=== PATIENT | female | born 1950 | race Caucasian/White ===

== ENCOUNTER → 2017-07-28 | Day surgery (SDC) | payer MEDICARE ==
[2017-07-27 15:06] LABS: BASOPHILS # (AUTO) 0.1 (0.0-0.1); BASOPHILS % 0.5 % (0.0-1.0); EOSINOPHILS # (AUTO) 0.2 (0.0-0.4); HEMATOCRIT 40.2 % (34.2-44.1); LYMPHOCYTES # (AUTO) 3.1 (1.0-3.2); MEAN CORPUSCULAR HGB CONC 34.8 g/dL (31-35); MEAN CORPUSCULAR VOLUME 86.1 fL (81-99); MONOCYTES # (AUTO) 1.1 (0.2-0.8); NEUTROPHILS # (AUTO) 5.6 (2.1-6.9); NEUTROPHILS % 55.1 % (38.7-80.0); PLATELET COUNT 347 x10e3/uL (140-360); RED BLOOD COUNT 4.67 x10e6/uL (3.6-5.1); RED CELL DISTRIBUTION WIDTH 12.7 % (11.7-14.4)
[~2017-07-28] MED LIST: ADVIL200 M1 PO; CALCIUM PO; CYCLOBENZAPRINE10 MG PO; DIGOXIN PO; FENTANYL CITRATE/PF 100MCG/2 ML INJ ONE; FLEXERIL PO; GABAPENTIN300 MG PO; IOPAMIDOL 200 MG/ML 20 ML VIAL IT ONE; LIDOCAINE HCL 1% 30ML-PF VIAL ONE; LIDOCAINE HCL 2% LOCAL INJ 5 ML SDV VIAL INJ ONE; LOSARTAN POTASS50 MG PO; METOPROLOL SUCC50 MG PO; MIDAZOLAM HCL 2 MG/2 ML VIAL ONE; NORCO 10-325 T1 EACH PO; PROBIOTIC PO; PROPOFOL IV EMULSION 10 MG/ML 20 ML VIAL ONE; QUINAPRIL PO; TRIAMCINOLONE ACET 40 MG/ML VIAL ONE; VITAMIN D PO
== END | disposition home or self-care (01) ==
LOC: OR 07:38
PROVIDERS: ATTEND Physical Medicine & Rehabilitation Pain Medicine
DX: M46.1 Sacroiliitis, not elsewhere classified (principal); M54.16 Radiculopathy, lumbar region; R93.7 Abnormal findings on diagnostic imaging of other parts of musculoskeletal system; I10 Essential (primary) hypertension; Z01.810 Encounter for preprocedural cardiovascular examination; Z01.812 Encounter for preprocedural laboratory examination; Z87.01 Personal history of pneumonia (recurrent)
CPT/HCPCS: 36415; 76000; 85025; 93005; G0260; J2001 ×2; J2250; J3301; Q9966

== ENCOUNTER → 2017-08-11 | Day surgery (SDC) | payer MEDICARE ==
[~2017-08-11] MED LIST changes: +BUPIVACAINE 0.25% 30ML SDV INJ ONE; +DEXAMETHASONE SOD PHOS 10 MG/1 ML VIAL ONE; -LIDOCAINE HCL 2% LOCAL INJ 5 ML SDV VIAL INJ ONE; -PROPOFOL IV EMULSION 10 MG/ML 20 ML VIAL ONE; +PROPOFOL IV EMULSION 10 MG/ML 50 ML VIAL ONE; -TRIAMCINOLONE ACET 40 MG/ML VIAL ONE
== END | disposition home or self-care (01) ==
LOC: OR 05:17
PROVIDERS: ATTEND Physical Medicine & Rehabilitation Pain Medicine
DX: M54.16 Radiculopathy, lumbar region (principal); M46.1 Sacroiliitis, not elsewhere classified; R93.7 Abnormal findings on diagnostic imaging of other parts of musculoskeletal system; I10 Essential (primary) hypertension
CPT/HCPCS: 64483; 64484; J1100; J2001; J2250; Q9966; 77003

== ENCOUNTER → 2017-08-17 | Outpatient (RCR) | payer MEDICARE ==
[~2017-08-17] MED LIST changes: -BUPIVACAINE 0.25% 30ML SDV INJ ONE; -DEXAMETHASONE SOD PHOS 10 MG/1 ML VIAL ONE; -FENTANYL CITRATE/PF 100MCG/2 ML INJ ONE; -IOPAMIDOL 200 MG/ML 20 ML VIAL IT ONE; -LIDOCAINE HCL 1% 30ML-PF VIAL ONE; -MIDAZOLAM HCL 2 MG/2 ML VIAL ONE; -PROPOFOL IV EMULSION 10 MG/ML 50 ML VIAL ONE
== END ==
LOC: PT 08-04 15:51
PROVIDERS: ATTEND Physical Medicine & Rehabilitation Pain Medicine
DX: M54.16 Radiculopathy, lumbar region (principal); M53.86 Other specified dorsopathies, lumbar region; M62.81 Muscle weakness (generalized)
CPT/HCPCS: 97010; 97110 ×5; 97162; G8978; G8979

== ENCOUNTER → 2017-09-01 | Day surgery (SDC) | payer MEDICARE ==
[~2017-09-01] MED LIST changes: +DEXAMETHASONE SOD PHOS 10 MG/1 ML VIAL ONE; +FENTANYL CITRATE/PF 100MCG/2 ML INJ ONE; +IOPAMIDOL 200 MG/ML 20 ML VIAL IT ONE; +LIDOCAINE HCL 1% 30ML-PF VIAL ONE; +LIDOCAINE HCL 2% LOCAL INJ 5 ML SDV VIAL INJ ONE; +MIDAZOLAM HCL 2 MG/2 ML VIAL ONE; +PROPOFOL IV EMULSION 10 MG/ML 20 ML VIAL ONE
--- OUTSIDE RECORDS SUMMARY | 2017-09-01 05:15 | XMS REPORT | Continuity of Care Document ---
Author Author [facility] Organization [facility] Address [address] [place] [address] Phone Unavailable Care Team Providers Care Color Coater Name Role Phone JUSTICE FITZPATRICK MD PCP Insurance Providers Guarantor Annia Augustine Lynch Address [address] [place] [address] Email [email or web address] Payer [employer] Medicare Policy Number [id number] Subscriber's Name Annia Augustine Relationship 18 Self / Same As Patient Group Number [id number] Group Name [facility] OF Effective Date 17 Advance Directives Directive Response Recorded Date/Time Does the patient have an advance directive? Yes 07/16/14 11:29am If yes, is advance directive on file with [facility]? No 06/25/13 12:34pm If not on file with [facility] will patient provide a copy? No 08/11/17 5:14am Do you have a Directive to Physician? Yes 08/11/17 5:14am Do you have a Medical Power of Customs And Immigration Officer? Yes 08/11/17 5:14am Do you have an out of hospital Do Not Resuscitate Order? No 08/11/17 5:14am Do you have any special needs we should be aware of? No 08/11/17 5:14am Do you have a support person here with you today? Yes 08/11/17 5:14am Did patient receive Notice of Privacy Practices? Yes 08/11/17 5:14am Did patient receive patient rights and responsibilities? Yes 08/11/17 5:14am Problems No problem information available. Medications Current Home Medications Medication Dose Units Route Directions Days Qty Instructions Start Date Gabapentin 300 Mg Capsule 300 Mg Oral Three Times A Day 60 Cap Hydrocodone Bit/Acetaminophen ([place] 10-325 Tablet) 1 Each Tablet Mg Oral Every 6 Hours As Nee Ibuprofen (Advil) 200 Mg Capsule 200 Mg Oral As Needed as needed for Pain Losartan Potassium 50 Mg Tablet 50 Mg Oral Daily Metoprolol Succinate 50 Mg Tab.er.24h 50 Mg Oral Daily Past Home Medications Medication Directions Ordered Status Calcium , Oral Daily Discontinued Cyclobenzaprine Hcl 10 Mg Tablet, 10 Mg Oral Three Times A Day Discontinued Digoxin , Oral Daily Discontinued Flexeril , Oral As Needed Discontinued Probiotic , Oral Daily Discontinued Quinapril , Oral Daily Discontinued Vitamin D , Oral Daily Discontinued Social History No social history information available. Hospital Discharge Instructions Current inpatient/outpatient. Discharge instructions are currently unavailable. Plan of Care Current inpatient/outpatient. The plan of care is currently unavailable. Functional Status No functional status information available. Allergies, Adverse Reactions, Alerts Allergen Type Severity Reaction Status Last Updated Codeine Allergy Intermediate NAUSEA Active 07/28/17 Immunizations No immunization information available. Vital Signs No vital sign information available. Results Laboratory Results Test Name Result Units Flags Reference Collection Date/Time Result Date/ Time Comments White Blood Count 10.09 x10e3/uL 4.8-10.8 07/27/2017 3:00pm 07/27/2017 3:07pm Red Blood Count 4.67 x10e6/uL 3.6-5.1 07/27/2017 3:00pm 07/27/2017 3: 07pm Hemoglobin 14.0 g/dL 12.0-16.0 07/27/2017 3:00pm 07/27/2017 3:07pm Hematocrit 40.2 % 34.2-44.1 07/27/2017 3:00pm 07/27/2017 3:07pm Mean Corpuscular Volume 86.1 fL 81-99 07/27/2017 3:00pm 07/27/2017 3: 07pm Mean Corpuscular Hemoglobin 30.0 pg 28-32 07/27/2017 3:00pm 07/27/2017 3:07pm Mean Corpuscular Hemoglobin Concent 34.8 g/dL 31-35 07/27/2017 3:00pm 07/27/2017 3:07pm Red Cell Distribution Width 12.7 % 11.7-14.4 07/27/2017 3:00pm 2017 3:07pm Platelet Count 347 x10e3/uL 140-360 07/27/2017 3:00pm 07/27/2017 3: 07pm Neutrophils (%) (Auto) 55.1 % 38.7-80.0 07/27/2017 3:00pm 07/27/2017 3: 07pm Lymphocytes (%) (Auto) 31.0 % 18.0-39.1 07/27/2017 3:00pm 07/27/2017 3: 07pm Monocytes (%) (Auto) 11.0 % 4.4-11.3 07/27/2017 3:00pm 07/27/2017 3: 07pm Eosinophils (%) (Auto) 2.0 % 0.0-6.0 07/27/2017 3:00pm 07/27/2017 3: 07pm Basophils (%) (Auto) 0.5 % 0.0-1.0 07/27/2017 3:00pm 07/27/2017 3:07pm IM GRANULOCYTES % 0.4 % 0.0-1.0 07/27/2017 3:00pm 07/27/2017 3:07pm Neutrophils # (Auto) 5.6 2.1-6.9 07/27/2017 3:00pm 07/27/2017 3:07pm Lymphocytes # (Auto) 3.1 1.0-3.2 07/27/2017 3:00pm 07/27/2017 3:07pm Monocytes # (Auto) 1.1 H 0.2-0.8 07/27/2017 3:00pm 07/27/2017 3:07pm Eosinophils # (Auto) 0.2 0.0-0.4 07/27/2017 3:00pm 07/27/2017 3:07pm Basophils # (Auto) 0.1 0.0-0.1 07/27/2017 3:00pm 07/27/2017 3:07pm Absolute Immature Granulocyte (auto 0.04 x10e3/uL 0-0.1 07/27/2017 3: 00pm 07/27/2017 3:07pm Procedures Procedure Status Date Provider(s) COLONOSCOPY W/LESION REMOVAL Completed 03/28/17 JAVAN OROPEZA MD Inj for sacroiliac jt anesth Completed 07/28/17 RUBIO MEDINA MD Encounters Encounter Location Arrival/Admit Date Discharge/Depart Date Attending Provider Discharged [facility] 08/17/17 10:54am 11:59pm RUBIO MEDINA MD Registered Surgical Day Care [facility] 08/11/17 5:17am RUBIO MEDINA MD Registered Surgical Day [facility] 07/28/17 7:38am RUBIO MEDINA MD Registered Surgical Day [facility] 03/28/17 5:42am JAVAN OROPEZA MD
== END | disposition home or self-care (01) ==
LOC: OR 05:13
PROVIDERS: ATTEND Physical Medicine & Rehabilitation Pain Medicine
DX: M54.16 Radiculopathy, lumbar region (principal); M54.17 Radiculopathy, lumbosacral region; M46.1 Sacroiliitis, not elsewhere classified; M62.838 Other muscle spasm; R93.7 Abnormal findings on diagnostic imaging of other parts of musculoskeletal system; I25.2 Old myocardial infarction
CPT/HCPCS: 64483; 64484 ×2; J1100; J2001 ×2; J2250; Q9966; 77003

== ENCOUNTER 2017-09-02 11:00 | Outpatient (RCR) | payer MEDICARE ==
[~2017-09-02 11:00] MED LIST changes: -DEXAMETHASONE SOD PHOS 10 MG/1 ML VIAL ONE; -FENTANYL CITRATE/PF 100MCG/2 ML INJ ONE; -IOPAMIDOL 200 MG/ML 20 ML VIAL IT ONE; -LIDOCAINE HCL 1% 30ML-PF VIAL ONE; -LIDOCAINE HCL 2% LOCAL INJ 5 ML SDV VIAL INJ ONE; -MIDAZOLAM HCL 2 MG/2 ML VIAL ONE; -PROPOFOL IV EMULSION 10 MG/ML 20 ML VIAL ONE
== END 2017-09-14 ==
LOC: PT 11:00
PROVIDERS: ATTEND Physical Medicine & Rehabilitation Pain Medicine
DX: M54.16 Radiculopathy, lumbar region (principal)
CPT/HCPCS: 97010; 97110 ×7; 97139; 97140 ×4; G8978; G8979

== ENCOUNTER 2017-09-09 13:44 | Emergency (ER) | payer MEDICARE ==
[~2017-09-09] VITALS: Ht 165.1 cm; Wt 87.5 kg
[2017-09-09] MEDS ORDERED: KETOROLAC TROMETHAMINE 30 MG/ML VIAL IV STA (15:34)
[2017-09-09] MEDS ORDERED: SODIUM CHLORIDE 0.9% 1000ML 1,000 ML IV ONE (15:45)
[2017-09-09] MEDS ORDERED: FENTANYL CITRATE/PF 100MCG/2 ML INJ IV ONE (15:45)
[2017-09-09] MEDS ORDERED: DIATRIZOATE MEGL/DIATRIZOA SOD 30 ML BTL PO ONE (15:46)
[2017-09-09] MEDS ORDERED: FENTANYL CITRATE/PF 100MCG/2 ML INJ IV NR (16:00)
[2017-09-09] MEDS ORDERED: KETOROLAC TROMETHAMINE 30 MG/ML VIAL IV NR (16:00)
[2017-09-09 16:09] LABS: BASOPHILS % 0.3 % (0.0-1.0); EOSINOPHILS # (AUTO) 0.1 (0.0-0.4); EOSINOPHILS % 0.6 % (0.0-6.0); HEMATOCRIT 38.7 % (34.2-44.1); HEMOGLOBIN 13.6 g/dL (12.0-16.0); LYMPHOCYTES # (AUTO) 2.2 (1.0-3.2); MEAN CORPUSCULAR HEMOGLOBIN 30.2 pg (28-32); MEAN CORPUSCULAR HGB CONC 35.1 g/dL (31-35); MEAN CORPUSCULAR VOLUME 85.8 fL (81-99); MONOCYTES # (AUTO) 0.8 (0.2-0.8); NEUTROPHILS % 65.8 % (38.7-80.0); PLATELET COUNT 368 x10e3/uL (140-360); RED BLOOD COUNT 4.51 x10e6/uL (3.6-5.1); RED CELL DISTRIBUTION WIDTH 12.9 % (11.7-14.4)
[2017-09-09 16:39] LABS: ALANINE AMINOTRANSFERASE 25 IU/L (0-55); ALBUMIN 3.7 g/dL (3.5-5.0); ALKALINE PHOSPHATASE 97 IU/L (40-150); ANION GAP 12.9 mmol/L (8-16); BLOOD UREA NITROGEN 12 mg/dL (7-26); BUN/CREATININE RATIO 16 (6-25); CALCIUM 10.3 mg/dL (8.4-10.2); CARBON DIOXIDE 21 mmol/L (22-29); CHLORIDE 107 mmol/L (98-107); CREATININE, SERUM 0.73 mg/dL (0.57-1.11); EST GLOMERULAR FILTRATION RATE > 60 ML/MIN (60-); GLUCOSE 114 mg/dL (74-118); LIPASE 29 U/L (8-78); POTASSIUM 3.9 mmol/L (3.5-5.1); SODIUM 137 mmol/L (136-145)
[2017-09-09] MEDS ORDERED: IOPAMIDOL 370 MG/ML 200 ML INFUS..BTL INJ ONE (17:18)
--- NOTE | 2017-09-09 17:53 | Diagnostic Imaging Report ---
EXAM: CT Abdomen and Pelvis WITH contrast INDICATION: \S\LLQ pain, constipation, low grade Temp \[id number] \S\1700 COMPARISON: Renal ultrasound dated 08/23/2016 TECHNIQUE: Abdomen and pelvis were scanned utilizing a multidetector helical scanner from the lung base to the pubic symphysis after administration of IV contrast. Coronal and sagittal reformations were obtained. Routine protocol was performed. Scan was performed when during portal venous phase. IV CONTRAST: 100 mL of Isovue-370 ORAL CONTRAST: Gastroview COMPLICATIONS: None RADIATION DOSE: Total DLP: 695.72 mGy*cm Estimated effective dose: (DLP x 0.015 x size factor) mSv CTDIvol has been reviewed. It is below the limits set by the Radiation Protocol Committee (RPC). FINDINGS: LINES and TUBES: None. LOWER THORAX: Unremarkable. Partially imaged mitral valve calcification. HEPATOBILIARY: No focal hepatic lesions. No biliary ductal dilation. GALLBLADDER: Calcified gallstones in gallbladder neck. No wall thickening. SPLEEN: No splenomegaly. PANCREAS: No focal masses or ductal dilatation. ADRENALS: No adrenal nodules KIDNEYS/URETERS: Kidneys enhance symmetrically. No hydronephrosis. 2.7 cm exophytic right superior pole renal hypodensity with internal attenuation greater than simple fluid. This lesion has been stable and appears as a simple cyst on ultrasound dated 08/23/2016. Multiple left renal subcentimeter hypodensities are too small to characterize. No stones. GI TRACT: No abnormal distention, wall thickening, or evidence of bowel obstruction. Colonic diverticulosis with minimal left lower quadrant pericolonic fat stranding, best seen on coronal image 42, suspicious for mild uncomplicated diverticulitis. Appendix is normal. Small hiatal hernia. 3.5 x 3.5 cm diverticulum, extending from the posterior gastric fundus, with air-contrast level (series 2, image 12). PELVIC ORGANS/BLADDER: Unremarkable. Retroverted uterus. LYMPH NODES: No lymphadenopathy. VESSELS: Unremarkable. PERITONEUM / RETROPERITONEUM: No free air or fluid. BONES: Degenerative changes of the spine, especially at L4-L5. SOFT TISSUES: Unremarkable. IMPRESSION: 1. Colonic diverticulosis with questionable minimal left lower quadrant fat stranding, which could represent mild uncomplicated diverticulitis. 2. Cholelithiasis without evidence of cholecystitis. 3. Incidentally seen 3.5 cm gastric diverticulum. Signed by: Dr. Harrison Dominguez MD on 09/09/2017 5:49 PM
[2017-09-09] MEDS ORDERED: METRONIDAZOLE 500 MG TAB PO ONE (18:30)
[2017-09-09] MEDS ORDERED: CIPROFLOXACIN 500 MG TAB PO ONE (18:30)
== END 2017-09-09 19:02 | disposition home or self-care (01) ==
LOC: ER 13:44
DX: R10.32 Left lower quadrant pain (principal); R11.0 Nausea; K57.32 Diverticulitis of large intestine without perforation or abscess without bleeding
CPT/HCPCS: 36415; 74177; 80053; 83690; 85025; 99284; J1885; J7030; Q9967

== ENCOUNTER → 2017-10-06 | Day surgery (SDC) | payer MEDICARE ==
[~2017-10-06] MED LIST changes: +DEXAMETHASONE SOD PHOS 10 MG/1 ML VIAL ONE; +FENTANYL CITRATE/PF 100MCG/2 ML INJ ONE; +IOPAMIDOL 200 MG/ML 20 ML VIAL IT ONE; +LIDOCAINE HCL 1% 30ML-PF VIAL ONE; +MIDAZOLAM HCL 2 MG/2 ML VIAL ONE; +PROPOFOL IV EMULSION 10 MG/ML 20 ML VIAL ONE
--- OUTSIDE RECORDS SUMMARY | 2017-10-06 06:44 | XMS REPORT ---
Author Author [facility] Address Unknown Phone Unavailable Care Team Providers Care Discharge Specialist Name Role Phone JANET CARIAS Unavailable Unavailable Problems This patient has no known problems. Allergies, Adverse Reactions, Alerts This patient has no known allergies or adverse reactions. Medications This patient has no known medications. Results Test Description Test Time Test Comments Text Results Atomic Results Result Comments CT ABDOMEN/PELVIS W [place] [address] Patient Name: STARR OMALLEY MR #: [id number] : 1950 Age/Sex: 66/F Req #: [id number] [facility] Physician: Ordered by: JANET CARIAS MD Report #: [id number] Location: ER Room/Bed: Procedure: [id number] CT/CT ABDOMEN/PELVIS W Exam Date: 09/09/17 Exam Time: 1700 REPORT STATUS: Signed EXAM: CT Abdomen and Pelvis WITH contrast INDICATION: COMPARISON: Renal ultrasound dated 08/23/2016 TECHNIQUE: Abdomen and pelvis were scanned utilizing a multidetector helical scanner from the lung base to the pubic symphysis after administration of IV contrast. Coronal and sagittal reformations were obtained. Routine protocol was performed. Scan was performed when during portal venous phase. IV CONTRAST: 100 mL of Isovue-370 ORAL CONTRAST: Gastroview COMPLICATIONS: None RADIATION DOSE: Total DLP: 695.72 mGy*cm Estimated effective dose: (DLP x 0.015 x size factor) mSv CTDIvol has been reviewed. It is below the limits set by the Radiation Protocol Committee (RPC) . FINDINGS: LINES and TUBES: None. LOWER THORAX: Unremarkable. Partially imaged mitral valve calcification. HEPATOBILIARY: No focal hepatic lesions. No biliary ductal dilation. GALLBLADDER: Calcified gallstones in gallbladder neck. No wall thickening. SPLEEN: No splenomegaly. PANCREAS: No focal masses or ductal dilatation. ADRENALS: No adrenal nodules KIDNEYS/URETERS: Kidneys enhance symmetrically. No hydronephrosis. 2.7 cm exophytic right superior pole renal hypodensity with internal attenuation greater than simple fluid. This lesion has been stable and appears as a simple cyst on ultrasound dated 08/23/2016. Multiple left renal subcentimeter hypodensities are too small to characterize. No stones. GI TRACT: No abnormal distention, wall thickening , or evidence of bowel obstruction. Colonic diverticulosis with minimal left lower quadrant pericolonic fat stranding, best seen on coronal image 42, suspicious for mild uncomplicated diverticulitis. Appendix is normal. Small hiatal hernia. 3.5 x 3.5 cm diverticulum, extending from the posterior gastric fundus, with air-contrast level (series 2, image 12). PELVIC ORGANS/BLADDER: Unremarkable. Retroverted uterus. LYMPH NODES: No lymphadenopathy. VESSELS: Unremarkable. PERITONEUM / RETROPERITONEUM: No free air or fluid. BONES: Degenerative changes of the spine, especially at L4-L5. SOFT TISSUES: Unremarkable. IMPRESSION: 1. Colonic diverticulosis with questionable minimal left lower quadrant fat stranding, which could represent mild uncomplicated diverticulitis. 2. Cholelithiasis without evidence of cholecystitis. 3. Incidentally seen 3.5 cm gastric diverticulum. Signed by: Dr. Harrison Youngblood MD on 09/09/2017 5: 49 PM Dictated By: HARRISON YOUNGBLOOD MD 46 Transcribed By: MAURICE on 09/09/171748 COPY TO: JANET CARIAS MD
--- OUTSIDE RECORDS SUMMARY | 2017-10-06 06:44 | XMS REPORT | Continuity of Care Document ---
Author Author [facility] Organization [facility] Address [address] [place] [address] Phone Unavailable Care Team Providers Care Form Layer Name Role Phone JUSTICE FITZPATRICK MD PCP Insurance Providers Guarantor Annia Augustine Address [address] [place] [address] Email [email or web address] Payer [employer] Medicare Policy Number [id number] Subscriber's Name Annia Augustine Relationship 18 Self / Same As Patient Group Number [id number] Group Name [facility] OF Effective Date 17 Advance Directives Directive Response Recorded Date/Time Does the patient have an advance directive? No 09/09/17 6:12pm If yes, is advance directive on file with [facility]? No 06/25/13 12:34pm If not on file with [facility] will patient provide a copy? No 08/11/17 5:14am Do you have a Directive to Physician? No 09/09/17 6:12pm Do you have a Medical Power of Internal Control Specialist? No 09/09/17 6:12pm Do you have an out of hospital Do Not Resuscitate Order? No 09/09/17 6:12pm Do you have any special needs we should be aware of? No 09/09/17 6:12pm Do you have a support person here with you today? Yes 09/09/17 6:12pm Did patient receive Notice of Privacy Practices? Yes 09/09/17 6:12pm Did patient receive patient rights and responsibilities? Yes 09/09/17 6:12pm Problems No problem information available. Medications Current Home Medications Medication Dose Units Route Directions Days Qty Instructions Start Date Gabapentin 300 Mg Capsule 300 Mg Oral Three Times A Day 60 Cap Hydrocodone Bit/Acetaminophen ([place] 10-325 Tablet) 1 Each Tablet Mg Oral [...] social history information available. Hospital Discharge Instructions No hospital discharge instruction information available. Plan of Care Discharge Date 09/09/17 7:02pm Disposition HOME, SELF-CARE Condition at Discharge Stable Instructions/Education Provided Abdominal Pain - Adult Diverticulitis Forms Provided Work/School Excuse Prescriptions See Medication Section Referrals JUSTICE FITZPATRICK MD Order Date: Call for an appointment Address: [address] [place] [id number] Additional Instructions/Education Keep a BRAT DIET for 2 days Drink Plenty of fluids Functional Status No functional status information available. Allergies, Adverse Reactions, Alerts Allergen Type Severity Reaction Status Last Updated Codeine Allergy Intermediate NAUSEA Active 09/09/17 Immunizations No immunization information available. Vital Signs Acute Vital Signs Vital Response Date/Time Height 5 ft 5 in 09/09/2017 3:00pm Weight 193 lb 09/09/2017 3:00pm Body Mass Index 32.1 kg/m^2 09/09/2017 3:00pm Results Laboratory Results Test Name Result Units Flags Reference Collection Date/Time Result Date/ Time Comments White Blood Count 9.08 x10e3/uL 4.8-10.8 09/09/2017 3:50pm 09/09/2017 4 :09pm Red Blood Count 4.51 x10e6/uL 3.6-5.1 09/09/2017 3:50pm 09/09/2017 4: 09pm Hemoglobin 13.6 g/dL 12.0-16.0 09/09/2017 3:50pm 09/09/2017 4:09pm Hematocrit 38.7 % 34.2-44.1 09/09/2017 3:50pm 09/09/2017 4:09pm Mean Corpuscular Volume 85.8 fL 81-99 09/09/2017 3:50pm 09/09/2017 4: 09pm Mean Corpuscular Hemoglobin 30.2 pg 28-32 09/09/2017 3:50pm 09/09/2017 4:09pm Mean Corpuscular Hemoglobin Concent 35.1 g/dL H 31-35 09/09/2017 3:50pm 09/09/2017 4:09pm Red Cell Distribution Width 12.9 % 11.7-14.4 09/09/2017 3:50pm 2017 4:09pm Platelet Count 368 x10e3/uL H 140-360 09/09/2017 3:50pm 09/09/2017 4: 09pm Neutrophils (%) (Auto) 65.8 % 38.7-80.0 09/09/2017 3:50pm 09/09/2017 4: 09pm Lymphocytes (%) (Auto) 24.0 % 18.0-39.1 09/09/2017 3:50pm 09/09/2017 4: 09pm Monocytes (%) (Auto) 9.0 % 4.4-11.3 09/09/2017 3:50pm 09/09/2017 4: 09pm Eosinophils (%) (Auto) 0.6 % 0.0-6.0 09/09/2017 3:50pm 09/09/2017 4: 09pm Basophils (%) (Auto) 0.3 % 0.0-1.0 09/09/2017 3:50pm 09/09/2017 4:09pm IM GRANULOCYTES % 0.3 % 0.0-1.0 09/09/2017 3:50pm 09/09/2017 4:09pm Neutrophils # (Auto) 6.0 2.1-6.9 09/09/2017 3:50pm 09/09/2017 4:09pm Lymphocytes # (Auto) 2.2 1.0-3.2 09/09/2017 3:50pm 09/09/2017 4:09pm Monocytes # (Auto) 0.8 0.2-0.8 09/09/2017 3:50pm 09/09/2017 4:09pm Eosinophils # (Auto) 0.1 0.0-0.4 09/09/2017 3:50pm 09/09/2017 4:09pm Basophils # (Auto) 0.0 0.0-0.1 09/09/2017 3:50pm 09/09/2017 4:09pm Absolute Immature Granulocyte (auto 0.03 x10e3/uL 0-0.1 09/09/2017 3: 50pm 09/09/2017 4:09pm Sodium Level 137 mmol/L 136-145 09/09/2017 3:50pm 09/09/2017 4:40pm Potassium Level 3.9 mmol/L 3.5-5.1 09/09/2017 3:50pm 09/09/2017 4:40pm Chloride Level 107 mmol/L 98-107 09/09/2017 3:50pm 09/09/2017 4:40pm Carbon Dioxide Level 21 mmol/L L 22-29 09/09/2017 3:50pm 09/09/2017 4: 40pm Anion Gap 12.9 mmol/L 8-16 09/09/2017 3:50pm 09/09/2017 4:40pm Blood Urea Nitrogen 12 mg/dL 7-26 09/09/2017 3:50pm 09/09/2017 4:40pm Creatinine 0.73 mg/dL 0.57-1.11 09/09/2017 3:50pm 09/09/2017 4:40pm BUN/Creatinine Ratio 16 6-25 09/09/2017 3:50pm 09/09/2017 4:40pm Estimat Glomerular Filtration Rate > 60 ML/MIN 60- 09/09/2017 3:50pm 4:40pm Ranges were taken from the National Kidney Disease Education Program and the National Kidney Foundation literature. Reference ranges: 60 or greater: Normal 16-59 (for 3 consecutive months): Chronic kidney disease 15 or less: Kidney failure Glucose Level 114 mg/dL 74-118 09/09/2017 3:50pm 09/09/2017 4:40pm Calcium Level 10.3 mg/dL H 8.4-10.2 09/09/2017 3:50pm 09/09/2017 4:40pm Total Bilirubin 1.0 mg/dL 0.2-1.2 09/09/2017 3:50pm 09/09/2017 4:40pm Aspartate Amino Transf (AST/SGOT) 22 IU/L 5-34 09/09/2017 3:50pm 2017 4:40pm Alanine Aminotransferase (ALT/SGPT) 25 IU/L 0-55 09/09/2017 3:50pm 4:40pm Total Protein 7.5 g/dL 6.5-8.1 09/09/2017 3:50pm 09/09/2017 4:40pm Albumin 3.7 g/dL 3.5-5.0 09/09/2017 3:50pm 09/09/2017 4:40pm Globulin 3.8 g/dL H 2.3-3.5 09/09/2017 3:50pm 09/09/2017 4:40pm Albumin/Globulin Ratio 1.0 0.8-2.0 09/09/2017 3:50pm 09/09/2017 4: 40pm Alkaline Phosphatase 97 IU/L 40-150 09/09/2017 3:50pm 09/09/2017 4: 40pm Lipase 29 U/L 8-78 09/09/2017 3:50pm 09/09/2017 4:40pm Procedures Procedure Status Date Provider(s) COLONOSCOPY W/LESION REMOVAL Completed 03/28/17 JAVAN OROPEZA MD Inj for sacroiliac jt anesth Completed 07/28/17 RUBIO MEDINA MD INJ FORAMEN EPIDURAL L/S Completed 08/11/17 RUBIO MEDINA MD INJ FORAMEN EPIDURAL ADD-ON Completed 08/11/17 RUBIO MEDINA MD Computed tomography of abdomen and pelvis with contrast Active 09/09/17 JANET CARIAS MD Encounters Encounter Location Arrival/Admit Date Discharge/Depart Date Attending Provider Departed Emergency Room [facility] 09/09/17 1:44pm 7:02pm JANET CARIAS MD Discharged [facility] 09/02/17 11:00am 11:59pm RUBIO MEDINA MD Registered Surgical Day Care [facility] 09/01/17 5:13am RUBIO MEDINA MD Registered [facility] Day [facility] 08/11/17 5:17am RUBIO MEDINA MD Discharged [facility] 08/04/17 3:51pm 08/17/17 11:59pm RUBIO MEDINA MD Registered Surgical Day [facility] 07/28/17 7:38am RUBIO MEDINA MD Registered Surgical Day [facility] 03/28/17 5:42am JAVAN OROPEZA MD
== END | disposition home or self-care (01) ==
LOC: OR 06:41
PROVIDERS: ATTEND Physical Medicine & Rehabilitation Pain Medicine
DX: M54.16 Radiculopathy, lumbar region (principal); M46.1 Sacroiliitis, not elsewhere classified; G57.01 Lesion of sciatic nerve, right lower limb; R93.7 Abnormal findings on diagnostic imaging of other parts of musculoskeletal system; R00.1 Bradycardia, unspecified; I10 Essential (primary) hypertension; F17.210 Nicotine dependence, cigarettes, uncomplicated; Z88.5 Allergy status to narcotic agent; Z01.810 Encounter for preprocedural cardiovascular examination
CPT/HCPCS: 64483; 64484 ×3; 93005; J1100; J2001; J2250; Q9966; 77003

== ENCOUNTER → 2017-11-14 | Outpatient (RCR) | payer MEDICARE ==
[~2017-11-14] MED LIST changes: -DEXAMETHASONE SOD PHOS 10 MG/1 ML VIAL ONE; -FENTANYL CITRATE/PF 100MCG/2 ML INJ ONE; -IOPAMIDOL 200 MG/ML 20 ML VIAL IT ONE; -LIDOCAINE HCL 1% 30ML-PF VIAL ONE; +LIDOCAINE HCL 2% LOCAL 20 ML VIAL ONE; -MIDAZOLAM HCL 2 MG/2 ML VIAL ONE; -PROPOFOL IV EMULSION 10 MG/ML 20 ML VIAL ONE; +SODIUM CHLORIDE 0.9% 250ML 250 ML ONE; +SODIUM CHLORIDE 0.9% 500ML 500 ML ONE
== END ==
LOC: PT 10-27 14:45
PROVIDERS: ATTEND Family Medicine
DX: M25.551 Pain in right hip (principal); M54.5 Low back pain; M62.81 Muscle weakness (generalized); R26.2 Difficulty in walking, not elsewhere classified
CPT/HCPCS: 97010; 97110 ×5; 97163; G8978; G8979

== ENCOUNTER 2017-11-24 12:58 | Outpatient (RCR) | payer MEDICARE ==
[~2017-11-24 12:58] MED LIST changes: -LIDOCAINE HCL 2% LOCAL 20 ML VIAL ONE; -SODIUM CHLORIDE 0.9% 250ML 250 ML ONE; -SODIUM CHLORIDE 0.9% 500ML 500 ML ONE
== END 2017-12-15 ==
LOC: PT 12:58
PROVIDERS: ATTEND Family Medicine
DX: M54.16 Radiculopathy, lumbar region (principal); M54.5 Low back pain; M25.551 Pain in right hip; R26.2 Difficulty in walking, not elsewhere classified; M62.81 Muscle weakness (generalized)
CPT/HCPCS: 97110 ×3; 97139; 97140; G8979; G8980

== ENCOUNTER → 2018-06-01 | Day surgery (SDC) | payer MEDICARE ==
[2018-05-30 15:18] LABS: BASOPHILS % 0.5 % (0.0-1.0); EOSINOPHILS # (AUTO) 0.3 (0.0-0.4); EOSINOPHILS % 3.8 % (0.0-6.0); HEMATOCRIT 39.6 % (34.2-44.1); HEMOGLOBIN 13.4 g/dL (12.0-16.0); LYMPHOCYTES # (AUTO) 3.7 (1.0-3.2); LYMPHOCYTES % 43.6 % (18.0-39.1); MEAN CORPUSCULAR HEMOGLOBIN 29.9 pg (28-32); MEAN CORPUSCULAR HGB CONC 33.8 g/dL (31-35); MEAN CORPUSCULAR VOLUME 88.4 fL (81-99); MONOCYTES # (AUTO) 0.9 (0.2-0.8); MONOCYTES % 10.7 % (4.4-11.3); NEUTROPHILS # (AUTO) 3.5 (2.1-6.9); NEUTROPHILS % 41.2 % (38.7-80.0); PLATELET COUNT 297 x10e3/uL (140-360); RED BLOOD COUNT 4.48 x10e6/uL (3.6-5.1); RED CELL DISTRIBUTION WIDTH 12.7 % (11.7-14.4)
[~2018-06-01] MED LIST changes: +BUPIVACAINE 0.25% 30ML SDV INJ ONE; +FENTANYL CITRATE/PF 100MCG/2 ML INJ ONE; +IOPAMIDOL 200 MG/ML 20 ML VIAL IT ONE; +LIDOCAINE HCL 1% 30ML-PF VIAL ONE; +LIDOCAINE HCL 2% LOCAL INJ 5 ML SDV VIAL INJ ONE; +MAGNESIUM PO; +MELATONIN3 MG PO; +MIDAZOLAM HCL 2 MG/2 ML VIAL ONE; +PROPOFOL IV EMULSION 10 MG/ML 20 ML VIAL ONE; +TRIAMCINOLONE ACET 40 MG/ML VIAL ONE
[2018-06-01 07:30] VITALS: BP 109/55
== END | disposition home or self-care (01) ==
LOC: OR 05:27
PROVIDERS: ATTEND Physical Medicine & Rehabilitation Pain Medicine
DX: M46.1 Sacroiliitis, not elsewhere classified (principal); M62.838 Other muscle spasm; G57.01 Lesion of sciatic nerve, right lower limb; M54.16 Radiculopathy, lumbar region; R93.7 Abnormal findings on diagnostic imaging of other parts of musculoskeletal system; G89.29 Other chronic pain; I10 Essential (primary) hypertension; I48.91 Unspecified atrial fibrillation; Z88.6 Allergy status to analgesic agent; Z01.810 Encounter for preprocedural cardiovascular examination; Z01.812 Encounter for preprocedural laboratory examination; Z68.31 Body mass index [BMI] 31.0-31.9, adult
CPT/HCPCS: 20552; G0260; 36415; 85025; 93005; J2001; J2250; J3301; Q9967

== ENCOUNTER → 2018-06-29 | Day surgery (SDC) | payer MEDICARE ==
[~2018-06-29] MED LIST changes: -PROPOFOL IV EMULSION 10 MG/ML 20 ML VIAL ONE
[2018-06-29 07:00] VITALS: BP 124/84
== END | disposition home or self-care (01) ==
LOC: OR 05:21
PROVIDERS: ATTEND Physical Medicine & Rehabilitation Pain Medicine
DX: M46.1 Sacroiliitis, not elsewhere classified (principal); G57.01 Lesion of sciatic nerve, right lower limb; M62.838 Other muscle spasm; G89.29 Other chronic pain; M54.16 Radiculopathy, lumbar region; H91.90 Unspecified hearing loss, unspecified ear; E66.9 Obesity, unspecified; I10 Essential (primary) hypertension; Z88.6 Allergy status to analgesic agent; Z68.32 Body mass index [BMI] 32.0-32.9, adult
CPT/HCPCS: 20552; G0260; J2001; J2250; J3301; Q9967

== ENCOUNTER → 2018-10-06 | Outpatient (CLI) | payer MEDICARE ==
[~2018-10-06] MED LIST changes: -BUPIVACAINE 0.25% 30ML SDV INJ ONE; -FENTANYL CITRATE/PF 100MCG/2 ML INJ ONE; -IOPAMIDOL 200 MG/ML 20 ML VIAL IT ONE; -LIDOCAINE HCL 1% 30ML-PF VIAL ONE; -LIDOCAINE HCL 2% LOCAL INJ 5 ML SDV VIAL INJ ONE; -MIDAZOLAM HCL 2 MG/2 ML VIAL ONE; -TRIAMCINOLONE ACET 40 MG/ML VIAL ONE
--- NOTE | 2018-10-06 18:06 | Diagnostic Imaging Report ---
MRI of the sacrum without contrast. History: Sacroiliac pain. Right buttock pain. Low back pain. Technique: Multiplanar multisequence MRI of the sacrum without contrast. Comparison: MRI lumbar spine from the same day. Findings: Please see report from MRI of the lumbar spine from the same day for further details. The visualized portion of the urinary bladder and remainder of the visualized pelvic structures are grossly unremarkable. No free pelvic fluid or pelvic lymphadenopathy is seen. There is mild diffuse muscle atrophy. No acute fracture, dislocation or evidence of avascular necrosis. Scattered degenerative changes are seen. No osseous erosion. The visualized neurovascular bundles are intact. Impression: No acute fracture, dislocation or evidence of avascular necrosis. Scattered degenerative changes are seen. No osseous erosion. Please see report from MRI of the lumbar spine from the same day for further details. Signed by: Dr. Mario Soriano M.D. on 10/06/2018 6:02 PM
--- NOTE | 2018-10-07 10:38 | Diagnostic Imaging Report ---
Examination: MRI SPINE LUMBAR WITHOUT CONTRAST History: Low back pain radiating down to the right buttock and front of the right leg with associated weakness. Comparison studies: None Technique: Sagittal, coronal and axial T2 , sagittal T1 and STIR; axial spin density oblique. Findings: Number of lumbar vertebral bodies: Five. Alignment: Normal lordosis. No scoliosis. Soft tissues: In the superior pole of the right kidney, there is a 2.7 cm T2 hyperintense lesion, likely representing a cyst. Several similar smaller lesions are seen in the interpolar left kidney. There are stones in the gallbladder. Posterior paraspinal soft tissues and muscles: No abnormality. Lower thoracic cord: Normal in signal and morphology. The tip of the conus is at L1. Cauda equina: No masses. No arachnoiditis. Vertebrae: No fractures, infection or neoplasm. Degenerative changes: T12-L1: Bilateral nerve root sleeve cyst, measures 3.5 mm on the right and 5.2 mm on the left. No degenerative disc for foraminal or canal stenosis. L1-L2: Mild diffuse disc bulge. No canal or foraminal stenosis. L2-L3: Mild diffuse disc bulge and mild bilateral facet arthropathy result in mild bilateral neural foraminal narrowing. No canal stenosis. L3-L4: Mild diffuse disc bulge and mild bilateral facet arthropathy result in mild bilateral neural foraminal narrowing. There is mild to moderate left ligamentum flavum thickening which mildly flattens the left posterior thecal sac with mild canal stenosis. L4-L5: Mild diffuse disc bulge and mild bilateral facet arthropathy result in mild right neural foraminal narrowing. No left foraminal or canal stenosis. L5-S1: Mild diffuse bulge and severe bilateral facet arthropathy. No foraminal or canal stenosis. IMPRESSION: 1. Degenerative changes from L1-L2 through L5-S1 with mild canal stenosis at L3-L4. 2. No significant (not moderate or severe) foraminal stenosis. 3. Cholelithiasis. 4. Presumed renal cysts. Signed by: Dr. Roxanne Bledsoe M.D. on 10/07/2018 10:34 AM
== END ==
LOC: MRI 14:30
PROVIDERS: ATTEND Physical Medicine & Rehabilitation Pain Medicine
DX: M54.16 Radiculopathy, lumbar region (principal); M46.1 Sacroiliitis, not elsewhere classified
CPT/HCPCS: 72148; 72195

== ENCOUNTER → 2019-01-04 | Day surgery (SDC) | payer MEDICARE ==
[2019-01-02 14:01] LABS: BASOPHILS # (AUTO) 0.1 (0.0-0.1); BASOPHILS % 0.7 % (0.0-1.0); EOSINOPHILS # (AUTO) 0.2 (0.0-0.4); EOSINOPHILS % 3.2 % (0.0-6.0); HEMATOCRIT 40.1 % (34.2-44.1); HEMOGLOBIN 13.5 g/dL (12.0-16.0); LYMPHOCYTES # (AUTO) 2.8 (1.0-3.2); LYMPHOCYTES % 38.7 % (18.0-39.1); MEAN CORPUSCULAR HEMOGLOBIN 30.1 pg (28-32); MEAN CORPUSCULAR HGB CONC 33.7 g/dL (31-35); MEAN CORPUSCULAR VOLUME 89.5 fL (81-99); MONOCYTES # (AUTO) 0.7 (0.2-0.8); MONOCYTES % 10.3 % (4.4-11.3); NEUTROPHILS # (AUTO) 3.4 (2.1-6.9); NEUTROPHILS % 46.8 % (38.7-80.0); PLATELET COUNT 295 x10e3/uL (140-360); RED BLOOD COUNT 4.48 x10e6/uL (3.6-5.1); RED CELL DISTRIBUTION WIDTH 12.7 % (11.7-14.4)
[~2019-01-04] MED LIST changes: +ADVIL PO; +ALEVE PO; +CBD OIL; +CBD OIL PO; +CITALOPRAM HBR20 MG PO; +ECONAZOLE NITRAT5 GM TOP; +FENTANYL CITRATE/PF 100MCG/2 ML INJ ONE; +FLUOCINONIDE-E15 GM TOP; +HYDROCODON-ACE1 EA12 PO; +IOPAMIDOL 200 MG/ML 20 ML VIAL IT ONE; +LIDOCAINE HCL 1% 30ML-PF VIAL ONE; +LIDOCAINE HCL 2% LOCAL INJ 5 ML SDV VIAL INJ ONE; +MELATONIN PO; +PANTOPRAZOLE SO20 MG PO; +PROPOFOL IV EMULSION 10 MG/ML 20 ML VIAL ONE; +TRIAMCINOLONE ACET 40 MG/ML VIAL ONE; +ULTRAM 50MG50 MG PO
[2019-01-04 08:25] VITALS: BP 121/57
== END | disposition home or self-care (01) ==
LOC: OR 05:22
PROVIDERS: ATTEND Physical Medicine & Rehabilitation Pain Medicine
DX: M46.1 Sacroiliitis, not elsewhere classified (principal); G57.01 Lesion of sciatic nerve, right lower limb; M54.16 Radiculopathy, lumbar region; M26.609 Unspecified temporomandibular joint disorder, unspecified side; I10 Essential (primary) hypertension; Z01.810 Encounter for preprocedural cardiovascular examination; Z01.812 Encounter for preprocedural laboratory examination; Z88.6 Allergy status to analgesic agent; Z68.32 Body mass index [BMI] 32.0-32.9, adult
CPT/HCPCS: 36415; 85025; 93005; G0260; J2001 ×2; J2704; J3301; Q9967; 76000; J3010

== ENCOUNTER → 2019-03-29 | Day surgery (SDC) | payer MEDICARE ==
[2019-03-26 12:20] LABS: BASOPHILS % 0.7 % (0.0-1.0); EOSINOPHILS # (AUTO) 0.2 (0.0-0.4); EOSINOPHILS % 2.9 % (0.0-6.0); HEMATOCRIT 41.4 % (34.2-44.1); HEMOGLOBIN 14.1 g/dL (12.0-16.0); LYMPHOCYTES # (AUTO) 2.5 (1.0-3.2); LYMPHOCYTES % 42.6 % (18.0-39.1); MEAN CORPUSCULAR HEMOGLOBIN 29.9 pg (28-32); MEAN CORPUSCULAR HGB CONC 34.1 g/dL (31-35); MEAN CORPUSCULAR VOLUME 87.7 fL (81-99); MONOCYTES # (AUTO) 0.7 (0.2-0.8); MONOCYTES % 11.9 % (4.4-11.3); NEUTROPHILS # (AUTO) 2.4 (2.1-6.9); NEUTROPHILS % 41.6 % (38.7-80.0); PLATELET COUNT 308 x10e3/uL (140-360); RED BLOOD COUNT 4.72 x10e6/uL (3.6-5.1); RED CELL DISTRIBUTION WIDTH 12.5 % (11.7-14.4)
[~2019-03-29] MED LIST changes: +BUPIVACAINE 0.25% 30ML SDV INJ ONE; +DEXAMETHASONE SOD PHOS 10 MG/1 ML VIAL ONE; +MIDAZOLAM HCL 2 MG/2 ML VIAL ONE; -TRIAMCINOLONE ACET 40 MG/ML VIAL ONE
[2019-03-29 07:16] VITALS: BP 137/93
== END | disposition home or self-care (01) ==
LOC: OR 05:21
PROVIDERS: ATTEND Physical Medicine & Rehabilitation Pain Medicine
DX: M54.16 Radiculopathy, lumbar region (principal); M46.1 Sacroiliitis, not elsewhere classified; I10 Essential (primary) hypertension; Z88.6 Allergy status to analgesic agent; Z01.812 Encounter for preprocedural laboratory examination
CPT/HCPCS: 36415; 64483; 64484 ×3; 85025; J1100; J2001 ×2; J2250; J2704; J3010; Q9967; 77003

== ENCOUNTER → 2019-05-01 | Outpatient (CLI) | payer MEDICARE ==
[~2019-05-01] MED LIST changes: -BUPIVACAINE 0.25% 30ML SDV INJ ONE; +CYCLOBENZAPRINE5 MG PO; -DEXAMETHASONE SOD PHOS 10 MG/1 ML VIAL ONE; -FENTANYL CITRATE/PF 100MCG/2 ML INJ ONE; -IOPAMIDOL 200 MG/ML 20 ML VIAL IT ONE; -LIDOCAINE HCL 1% 30ML-PF VIAL ONE; -LIDOCAINE HCL 2% LOCAL INJ 5 ML SDV VIAL INJ ONE; -MIDAZOLAM HCL 2 MG/2 ML VIAL ONE; -PROPOFOL IV EMULSION 10 MG/ML 20 ML VIAL ONE
--- NOTE | 2019-05-01 19:03 | Diagnostic Imaging Report ---
Exam: Lumbar spine MRI without IV contrast History: Lower back pain radiates to right hip and right leg. Lumbar spine MRI 10/06/2018 Comparison studies: None Technique: Sagittal and axial T2 , sagittal T1 and IR, axial spin density oblique. Intravenous contrast: None Findings: Number of lumbar vertebral bodies: 5. Alignment: Mild lumbar curvature convex on the right L4-L5. Soft tissues: No T2 hyperintense inflammatory changes. Paraspinal muscles: Mild bilateral symmetric fatty-replaced atrophy through the L3 level with moderate right and mild left fatty-replaced atrophy from L4 into the sacrum. Lower thoracic cord: Normal in signal and morphology. The tip of the conus is at L1-L2. Cauda equina: No masses. No arachnoiditis. Vertebrae: No compression fractures, infection or neoplasm. Laminotomy changes on the right at L3-L4 Degenerative changes: T10-T11: Mildly degenerated disc. Patent canal and foramina. T11-T12: Mildly degenerated disc. Mild canal stenosis due to a disc bulge. Patent foramina. T12-L1: Mildly degenerated disc with small disc bulge without foraminal stenosis. L1-L2: Mildly degenerated disc. Small symmetric disc bulge without canal or foraminal stenosis. L2-L3: Mildly degenerated disc. Symmetric disc bulge, thickened ligamentum flavum and mild bilateral facet arthrosis with minimal canal stenosis. Patent foramina.. L3-L4: Prior laminotomy on the right. Disc bulge with new focal 5 mm soft tissue at the right subarticular recess which may reflect small extruded disc fragment which is in position to impinge on the right L4 nerve root (axial T2 series 6, image 6). Disc bulge, thickened ligamentum flavum on the left and moderate left and mild right facet arthrosis without significant foraminal stenosis or canal stenosis. L4-L5: Moderately degenerated disks with loss of disc height and loss of T2 disc signal, on the right along the concavity lumbar curvature where there are fatty replaced-marrow endplate changes. Disc bulge with right foraminal disc osteophyte complex, thickened ligamentum flavum and bilateral facet arthrosis with mild canal stenosis, narrowing of the bilateral subarticular recesses and mild right foraminal stenosis. Disc osteophyte complex abuts and may impinge on the right L5 nerve root. Patent left foramen. L5-S1: Mildly degenerated disc. Moderate bilateral facet arthrosis with without significant canal or foraminal stenosis. Additional findings: Unchanged 2.7 cm right superior pole renal cyst. IMPRESSION: 1. New 5 focal soft tissue density at the right L3-L4 subarticular recess may be a small sequestered disc fragment and is in position to impinge on the right L4 nerve root. Prior right L3-L4 laminotomy. 2. Multilevel disc degeneration, worse/moderate on the right at L4-L5 along the concavity lumbar curvature. 3. Unchanged mild degenerative canal stenosis, mild right foraminal stenosis and potential impingement on the right L5 subarticular nerve root at L4-L5. 4. Unchanged multilevel facet arthrosis. Signed by: Dr. Alban Candelario M.D. on 05/01/2019 7:00 PM
== END ==
LOC: MRI 14:35
PROVIDERS: ATTEND Neurological Surgery
DX: M51.16 Intervertebral disc disorders with radiculopathy, lumbar region (principal)
CPT/HCPCS: 72148